=== PATIENT | male | born 1965 | race Caucasian/White ===

== ENCOUNTER 2024-06-29 11:01 | Day surgery (SDC) | payer OTHER, MEDICARE ==
[~2024-06-29] VITALS: Ht 182.9 cm; Wt 79.0 kg
[~2024-06-29 11:01] MED LIST: NS 1,000 ML IV SCH
[2024-06-29] MEDS ORDERED: dexAMETHasone 10 MG/ML VIAL ONE (11:39)
[2024-06-29] MEDS ORDERED: Lidocaine PF 2% (20 MG/ML) 5 ML VIAL ONE (11:39)
[2024-06-29] MEDS ORDERED: fentaNYL 50 MCG/ML 2 ML VIAL ONE (11:39)
[2024-06-29] MEDS ORDERED: Midazolam 2 MG/2 ML VIAL ONE (11:39)
[2024-06-29] MEDS ORDERED: HYDROmorphone 1 MG/1 ML SYRINGE [PACU/SDC ONLY] IV PRN (12:15)
[2024-06-29] MEDS ORDERED: hydrALAZINE 20 MG/ML 1 ML VIAL IV PRN (12:15)
[2024-06-29] MEDS ORDERED: fentaNYL 50 MCG/ML 1 ML SYRINGE/VIAL [PACU/SDC ONLY] IV PRN ×2 (12:15)
[2024-06-29] MEDS ORDERED: droPERidol 2.5 MG/ML 2 ML VIAL IV PRN (12:15)
[2024-06-29] MEDS ORDERED: Ondansetron 4 MG/2 ML VIAL IV PRN ×2 (12:15→13:00)
[2024-06-29] MEDS ORDERED: Meperidine 50 MG/ML 1 ML VIAL IV PRN (12:15)
[2024-06-29 12:18] VITALS: BP 147/85; PULSE 66; TEMP 98.1
[2024-06-29] MEDS ORDERED: NEURONTIN100 MG/CAP PO (12:21)
[2024-06-29] MEDS ORDERED: XPHOZAH30 MG PO (12:22)
[2024-06-29] MEDS ORDERED: COLCRYS0.6 MG PO (12:22)
[2024-06-29] MEDS ORDERED: CALCITRIOL PO (12:23)
[2024-06-29] MEDS ORDERED: RENVELA800 MG PO ×2 (12:24→12:26)
[2024-06-29 12:25] LABS: CALCIUM 9.4 mg/dL (8.4-10.2); CREATININE, serum 13.71 mg/dL (0.72-1.25); POTASSIUM 4.6 mEq/L (3.5-4.5)
[2024-06-29] MEDS ORDERED: oxyCODONE/Acetaminophen 5-325 MG TAB PO PRN (13:00)
[2024-06-29] MEDS ORDERED: Morphine 4 MG/ML VIAL IV PRN (13:00)
[2024-06-29] MEDS ORDERED: D5 1/2 NS 1,000 ML IV SCH (13:00)
[2024-06-29] MEDS ORDERED: NS 10 ML IV ONE (13:13)
[2024-06-29 14:25] VITALS: BP 114/71; PULSE 67; TEMP 97.6
[2024-06-29 14:40] VITALS: BP 118/74; PULSE 66
[2024-06-29 14:55] VITALS: BP 114/80; PULSE 68
[2024-06-29 15:10] VITALS: BP 153/82; PULSE 67
--- NOTE | 2024-06-29 15:28 | NUR ---
1426- Pt returns from OR at this time. Report received from Annemarie BAKER and Tiago POSEY. IV fluids infusing through RAC. Denies pain. CAM boot to right foot, dressing CDI. Denies pain. Awakens to verbal stimuli, falls alseep easily. 1440- Grape juice and pudding given. Pt awake, alert. Denies pain. 1520- Discharge instructions and education reviewed at community health with patient and aunt. Questions answered. Pt getting dressed. IV removed.
--- NOTE | 2024-06-29 15:52 | NUR ---
Patient down to aunts car at 1540, via w/c, accompanied by OLIVIA White. Denies complaints at that time.
== END 2024-06-29 15:40 | disposition home or self-care (01) ==
LOC: SDCO 11:01
PROVIDERS: Nurse Anesthetist, Certified Registered
DX: S92.331A Displaced fracture of third metatarsal bone, right foot, initial encounter for closed fracture (principal); S92.341A Displaced fracture of fourth metatarsal bone, right foot, initial encounter for closed fracture; S92.351A Displaced fracture of fifth metatarsal bone, right foot, initial encounter for closed fracture; S92.324A Nondisplaced fracture of second metatarsal bone, right foot, initial encounter for closed fracture; I12.0 Hypertensive chronic kidney disease with stage 5 chronic kidney disease or end stage renal disease; N18.6 End stage renal disease; Z99.2 Dependence on renal dialysis; Z85.46 Personal history of malignant neoplasm of prostate; W19.XXXA Unspecified fall, initial encounter
CPT/HCPCS: C1713; J0690; J1100; J2250; J2704; J2795; J3010; J7030